=== PATIENT | male | born 1945 | race Caucasian/White ===

== ENCOUNTER 2023-03-13 01:09 | Inpatient (IN) | payer OTHER, MEDICARE ==
[~2023-03-13] VITALS: Ht 185.4 cm; Wt 99.8 kg
[2023-03-13 01:13] VITALS: BP_SYST 148; PULSE 75; RESP 20; TEMP 97.5; O2SAT 92
[2023-03-13] MEDS ORDERED: NITROGLYCERIN 1 INCH (GM) OINT. TP ONE (01:17)
[2023-03-13] MEDS ORDERED: MORPHINE 4 MG INJ. 4 MG/ML VIAL IVP ONE (01:17)
[2023-03-13] MEDS ORDERED: SPIR25TA PO (02:13)
[2023-03-13] MEDS ORDERED: NEU300 PO (02:13)
[2023-03-13] MEDS ORDERED: LAM25 PO (02:13)
[2023-03-13] MEDS ORDERED: ESCI10TA PO (02:13)
[2023-03-13] MEDS ORDERED: MULT-1089 PO (02:13)
[2023-03-13] MEDS ORDERED: BUSP10TA3 PO (02:13)
[2023-03-13] MEDS ORDERED: ASCO500T20 PO (02:13)
[2023-03-13] MEDS ORDERED: METF-1069 PO (02:13)
[2023-03-13] MEDS ORDERED: LIP80 PO (02:13)
[2023-03-13] MEDS ORDERED: INSU100V38 SQ (02:13)
[2023-03-13] MEDS ORDERED: CHOL3000 PO (02:13)
[2023-03-13] MEDS ORDERED: MONT-40 PO (02:13)
[2023-03-13] MEDS ORDERED: CLOP75TA32 PO (02:13)
[2023-03-13] MEDS ORDERED: COR25 PO (02:13)
[2023-03-13] MEDS ORDERED: TAMS0.4C96 PO (02:13)
[2023-03-13] MEDS ORDERED: DAPA1TAB4 PO (02:13)
[2023-03-13] MEDS ORDERED: FERR159T2 PO (02:13)
[2023-03-13 02:21] LABS: BASOPHILS % (AUTO) 0.4 % (0.0-2.0); EOSINOPHILS # (AUTO) 0.2 K/uL (0.0-0.4); HEMATOCRIT 40.6 % (36-54); HEMOGLOBIN 13.7 g/dL (14.0-18.0); LYMPHOCYTES # (AUTO) 1.8 K/uL (1.0-5.5); LYMPHOCYTES % (AUTO) 23.4 % (20.5-51.5); MEAN CORPUSCULAR HEMOGLOBIN 34 pg (27-31); MEAN CORPUSCULAR HGB CONC 34 % (32-36); MEAN CORPUSCULAR VOLUME 100 fL (79.0-98.0); MONOCYTES % (AUTO) 12.7 % (1.7-9.3); NEUTROPHILS # (AUTO) 4.6 K/uL (1.8-7.7); NEUTROPHILS % (AUTO) 61.5 % (40.0-70.0); PLATELET COUNT (AUTO) 219 K/uL (130-430); RED BLOOD CELL COUNT(AUTO) 4.06 MIL/uL (4.2-6.2); RED CELL DISTRIBUTION WIDTH 13.8 % (9.0-15.0); WHITE BLOOD COUNT (AUTO) 7.5 K/uL (4.8-10.8)
[2023-03-13 03:26] LABS: ANION GAP 10 (5-15); CALCIUM 9.3 mg/dL (8.4-11.0); CARBON DIOXIDE 25 mmol/L (23-29); CHLORIDE 100 mmol/L (98-107); CREATININE 1.55 mg/dL (0.55-1.30); GLUCOSE 243 mg/dL (74-106); POTASSIUM 4.1 mmol/L (3.5-5.1); SODIUM SERUM 135 mmol/L (136-145); UREA NITROGEN, BLOOD 20 mg/dL (8-21)
[2023-03-13 03:29] LABS: INR 1.1 (0.80-1.20)
[2023-03-13 03:34] LABS: ALANINE AMINOTRANSFERASE 43 U/L (12-78); ALBUMIN 4.1 g/dL (3.4-4.8); ASPARTATE AMINOTRANSFERASE 21 U/L (10-37); TOTAL BILIRUBIN 0.4 mg/dL (0.0-1.0)
[2023-03-13] MEDS ORDERED: ENOXAPARIN SODIUM 100 MG/ML SYRINGE SUBCUT ONE (04:15)
[2023-03-13] MEDS ORDERED: MORPHINE 2 MG/ML INJ. SYRINGE IVP PRN ×2 (04:30→10:15)
[2023-03-13 09:49] VITALS: BP_SYST 125; PULSE 50; RESP 18; TEMP 97.1; O2SAT 98
[2023-03-13] MEDS ORDERED: NALOXONE HCL 0.4 MG/ML AMP (NARCAN) IVP PRN (10:15)
[2023-03-13 12:00] VITALS: BP_SYST 122; PULSE 52; RESP 18; TEMP 96.7; O2SAT 98
[2023-03-13 16:00] VITALS: BP_SYST 143; PULSE 75; RESP 16; TEMP 97.8; O2SAT 98
[2023-03-13] MEDS ORDERED: ACETAMINOPHEN 325 MG TABLET ONE (17:41)
[2023-03-13] MEDS ORDERED: ACETAMINOPHEN 325 MG TABLET PO PRN (17:45)
[2023-03-13] MEDS ORDERED: MONTELUKAST 10 MG TABLET PO SCH (18:00)
[2023-03-13 19:00] VITALS: O2SAT 95
[2023-03-13 20:00] VITALS: BP_SYST 136; PULSE 59; RESP 12; TEMP 98.6; O2SAT 95
[2023-03-13] MEDS ORDERED: INSULIN GLARGINE 100 UNITS/ML, 10 ML VIAL SUBCUT SCH (21:00)
[2023-03-13] MEDS: busPIRone HCL 5 MG TABLET PO SCH (21:22)
[2023-03-13] MEDS: LamoTRIgine 25 MG TABLET PO SCH (21:23)
[2023-03-13] MEDS: CARVEDILOL 25 MG TABLET (COREG) PO SCH (21:23)
[2023-03-14 06:19] LABS: BASOPHILS # (AUTO) 0.2 K/uL (0.0-0.2); EOSINOPHILS # (AUTO) 0.1 K/uL (0.0-0.4); EOSINOPHILS % (AUTO) 1.7 % (0.0-4.0); HEMATOCRIT 40.1 % (36-54); HEMOGLOBIN 13.3 g/dL (14.0-18.0); LYMPHOCYTES # (AUTO) 2.1 K/uL (1.0-5.5); LYMPHOCYTES % (AUTO) 25.3 % (20.5-51.5); MEAN CORPUSCULAR HEMOGLOBIN 33 pg (27-31); MEAN CORPUSCULAR HGB CONC 33 % (32-36); MEAN CORPUSCULAR VOLUME 100 fL (79.0-98.0); MONOCYTES # (AUTO) 0.9 K/uL (0.0-1.0); MONOCYTES % (AUTO) 11.1 % (1.7-9.3); NEUTROPHILS # (AUTO) 4.9 K/uL (1.8-7.7); NEUTROPHILS % (AUTO) 59.9 % (40.0-70.0); PLATELET COUNT (AUTO) 209 K/uL (130-430); WHITE BLOOD COUNT (AUTO) 8.3 K/uL (4.8-10.8)
[2023-03-14 06:30] LABS: ANION GAP 10 (5-15); CALCIUM 9.6 mg/dL (8.4-11.0); CARBON DIOXIDE 26 mmol/L (23-29); CHLORIDE 101 mmol/L (98-107); CREATININE 1.34 mg/dL (0.55-1.30); GLUCOSE 90 mg/dL (74-106); POTASSIUM 4.3 mmol/L (3.5-5.1); SODIUM SERUM 137 mmol/L (136-145); UREA NITROGEN, BLOOD 20 mg/dL (8-21)
[2023-03-14 06:42] LABS: ALANINE AMINOTRANSFERASE 41 U/L (12-78); ALBUMIN 3.8 g/dL (3.4-4.8); ASPARTATE AMINOTRANSFERASE 36 U/L (10-37); CHOLESTEROL 119 mg/dL (<200); HDL CHOLESTEROL 50 mg/dL (>45); TOTAL BILIRUBIN 0.6 mg/dL (0.0-1.0); TOTAL PROTEIN, SERUM 6.6 g/dL (6.4-8.3); TRIGLYCERIDES 129 mg/dL (30-150)
[2023-03-14 07:51] VITALS: BP_SYST 140; PULSE 50; RESP 18; TEMP 97.1; O2SAT 97
[2023-03-14] MEDS: busPIRone HCL 5 MG TABLET PO SCH (08:45)
[2023-03-14] MEDS: LamoTRIgine 25 MG TABLET PO SCH (08:46)
[2023-03-14] MEDS: CARVEDILOL 25 MG TABLET (COREG) PO SCH (08:47)
[2023-03-14] MEDS ORDERED: CITALOPRAM HYDROBROMIDE 20 MG TABLET PO SCH (09:00)
[2023-03-14] MEDS ORDERED: CLOPIDOGREL BISULFATE 75 MG TABLET PO SCH (09:00)
[2023-03-14] MEDS ORDERED: ASCORBIC ACID 500 MG TABLET PO SCH (09:00)
[2023-03-14] MEDS ORDERED: ATORVASTATIN 20 MG TABLET PO SCH (09:00)
[2023-03-14] MEDS ORDERED: TAMSULOSIN HCL 0.4 MG CAP PO SCH (09:00)
[2023-03-14] MEDS ORDERED: SPIRONOLACTONE 25 MG TABLET (ALDACTONE) PO SCH (09:00)
[2023-03-14] MEDS ORDERED: GABAPENTIN 300 MG CAPSULE PO SCH (09:00)
[2023-03-14 09:47] VITALS: BP_SYST 125; PULSE 52; RESP 17; TEMP 98; O2SAT 97
[2023-03-14 09:52] VITALS: BP_SYST 125; PULSE 52; RESP 17; TEMP 98; O2SAT 97
[2023-03-14 09:59] VITALS: O2SAT 97
== END 2023-03-14 12:00 | disposition home or self-care (01) | DRG 282 ==
LOC: SED 01:09 → STU 04:42
PROVIDERS: ADMIT Internal Medicine; ATTEND Internal Medicine
DX: I21.4 Non-ST elevation (NSTEMI) myocardial infarction (principal); E78.5 Hyperlipidemia, unspecified; I25.10 Atherosclerotic heart disease of native coronary artery without angina pectoris; I25.5 Ischemic cardiomyopathy; E11.42 Type 2 diabetes mellitus with diabetic polyneuropathy; N40.0 Benign prostatic hyperplasia without lower urinary tract symptoms; I50.9 Heart failure, unspecified; N18.2 Chronic kidney disease, stage 2 (mild); E11.22 Type 2 diabetes mellitus with diabetic chronic kidney disease; I25.2 Old myocardial infarction; Z79.4 Long term (current) use of insulin; Z87.891 Personal history of nicotine dependence; Z95.810 Presence of automatic (implantable) cardiac defibrillator; R06.03 Acute respiratory distress
CPT/HCPCS: 36415; 71045; 80048; 80053; 80061; 82962; 83880; 84443; 84484; 85025; 85379; 85610-TC; 85730-TC; 93005; 93306; 96372; 96374; 99285; G0378; J1650; J1815; J2270

== ENCOUNTER 2023-07-21 00:09 | Inpatient (IN) | payer OTHER, MEDICARE ==
[~2023-07-21] VITALS: Ht 182.9 cm; Wt 100.2 kg
[~2023-07-21 00:09] MED LIST: ASCO500T20 PO; BUSP10TA3 PO; CHOL3000 PO; CLOP75TA32 PO; COR25 PO; DAPA1TAB4 PO; ESCI10TA PO; FERR159T2 PO; INSU100V38 SQ; LAM25 PO; LIP80 PO; METF-1069 PO; MONT-40 PO; MULT-1089 PO; NEU300 PO; SPIR25TA PO; TAMS0.4C96 PO
[2023-07-21 00:15] VITALS: BP_SYST 151; PULSE 74; RESP 19; TEMP 98.1; O2SAT 95
[2023-07-21 01:10] LABS: BASOPHILS % (AUTO) 0.2 % (0.0-2.0); EOSINOPHILS % (AUTO) 0.4 % (0.0-4.0); HEMATOCRIT 40.6 % (36-54); HEMOGLOBIN 13.9 g/dL (14.0-18.0); LYMPHOCYTES % (AUTO) 11.3 % (20.5-51.5); MEAN CORPUSCULAR HEMOGLOBIN 35 pg (27-31); MEAN CORPUSCULAR HGB CONC 34 % (32-36); MEAN CORPUSCULAR VOLUME 102 fL (79.0-98.0); MONOCYTES # (AUTO) 0.8 K/uL (0.0-1.0); MONOCYTES % (AUTO) 8.8 % (1.7-9.3); NEUTROPHILS # (AUTO) 6.8 K/uL (1.8-7.7); NEUTROPHILS % (AUTO) 79.3 % (40.0-70.0); PLATELET COUNT (AUTO) 217 K/uL (130-430); RED BLOOD CELL COUNT(AUTO) 3.98 MIL/uL (4.2-6.2); RED CELL DISTRIBUTION WIDTH 13.4 % (9.0-15.0); WHITE BLOOD COUNT (AUTO) 8.6 K/uL (4.8-10.8)
[2023-07-21] MEDS: MORPHINE 4 MG INJ. 4 MG/ML VIAL IVP ONE (01:18)
[2023-07-21] MEDS: ASPIRIN 81 MG TAB.CHEW PO ONE (01:23)
[2023-07-21 02:00] LABS: ALANINE AMINOTRANSFERASE 181 U/L (12-78); ALBUMIN 3.7 g/dL (3.4-4.8); ANION GAP 9 (5-15); ASPARTATE AMINOTRANSFERASE 164 U/L (10-37); CALCIUM 8.8 mg/dL (8.4-11.0); CARBON DIOXIDE 24 mmol/L (23-29); CHLORIDE 99 mmol/L (98-107); CREATININE 1.76 mg/dL (0.55-1.30); POTASSIUM 4.7 mmol/L (3.5-5.1); SODIUM SERUM 132 mmol/L (136-145); TOTAL BILIRUBIN 0.5 mg/dL (0.0-1.0); TOTAL PROTEIN, SERUM 6.5 g/dL (6.4-8.3); UREA NITROGEN, BLOOD 27 mg/dL (8-21)
[2023-07-21 03:11] LABS: GLUCOSE 479 mg/dL (74-106)
[2023-07-21] MEDS: INSULIN REGULAR, HUMAN 10 UNITS/0.1 ML, 3 ML VIAL SUBCUT ONE (03:49)
[2023-07-21] MEDS ORDERED: INSULIN REGULAR, HUMAN 100 UNITS/ML, 3 ML VIAL (humuLIN R) SUBCUT PRN (05:15)
[2023-07-21] MEDS: NITROGLYCERIN 0.4 MG TAB.SUBL SL ONE (05:31)
[2023-07-21] MEDS ORDERED: DAPA1TAB4 PO (06:08)
[2023-07-21] MEDS ORDERED: AZEL205.2 NS (06:08)
[2023-07-21] MEDS ORDERED: BUSP10TA3 PO (06:08)
[2023-07-21] MEDS ORDERED: LAM25 PO (06:08)
[2023-07-21] MEDS ORDERED: ICOS1CAP PO (06:08)
[2023-07-21] MEDS ORDERED: INSULIN LISPRO SLIDING SCALE 100 UNITS/ML, 3 ML VIAL (humaLOG) SUBCUT PRN (08:30)
[2023-07-21] MEDS ORDERED: DEXTROSE 50% JECT 50 ML DISP.SYRIN IVP PRN (08:30)
[2023-07-21] MEDS ORDERED: CLOPIDOGREL BISULFATE 75 MG TABLET PO SCH (09:00)
[2023-07-21] MEDS ORDERED: HEPARIN SODIUM, PORCINE 10,000 UNITS/ 10 ML VIAL SUBCUT ONE (09:00)
[2023-07-21] MEDS ORDERED: GABAPENTIN 300 MG CAPSULE PO SCH (09:00)
[2023-07-21] MEDS ORDERED: busPIRone HCL 5 MG TABLET PO SCH (09:00)
[2023-07-21] MEDS: NITROGLYCERIN 0.4 MG TAB.SUBL SL PRN (09:21)
[2023-07-21] MEDS ORDERED: INSULIN GLARGINE 100 UNITS/ML, 10 ML VIAL ONE (09:54)
[2023-07-21] MEDS: SPIRONOLACTONE 25 MG TABLET (ALDACTONE) PO ONE (09:59)
[2023-07-21] MEDS: CARVEDILOL 25 MG TABLET (COREG) PO ONE (10:00)
[2023-07-21] MEDS: INSULIN LISPRO SLIDING SCALE 100 UNITS/ML, 3 ML VIAL (humaLOG) SUBCUT PRN (10:04)
[2023-07-21] MEDS: busPIRone HCL 5 MG TABLET PO ONE (10:16)
[2023-07-21] MEDS: TAMSULOSIN HCL 0.4 MG CAP PO SCH (10:16)
[2023-07-21] MEDS: CITALOPRAM HYDROBROMIDE 20 MG TABLET PO ONE (10:16)
[2023-07-21] MEDS: CLOPIDOGREL BISULFATE 75 MG TABLET PO ONE (10:17)
[2023-07-21] MEDS: LamoTRIgine 25 MG TABLET PO ONE (11:14)
[2023-07-21] MEDS: ASCORBIC ACID 500 MG TABLET PO ONE (11:14)
[2023-07-21] MEDS: ATORVASTATIN 20 MG TABLET PO ONE (11:14)
[2023-07-21] MEDS ORDERED: GABA600T PO (13:02)
[2023-07-21] MEDS ORDERED: FERR-31 PO (13:08)
[2023-07-21 14:32] LABS: INR 1.2 (0.80-1.20); PROTHROMBIN TIME 12.1 SECS (9.5-12.5)
[2023-07-21] MEDS: HEPARIN SODIUM,PORCINE 5,000 UNITS/ML VIAL SUBCUT SCH (14:58)
[2023-07-21] MEDS ORDERED: HYDROcodone/ACETAMIN 5-325 MG TAB (NORCO/ VICODIN) PO PRN (16:45)
[2023-07-21] MEDS ORDERED: ONDANSETRON HCL 4 MG/2 ML VIAL IVP PRN (16:45)
[2023-07-21] MEDS ORDERED: ZOLPIDEM TARTRATE 5 MG TABLET PO PRN (16:45)
[2023-07-21] MEDS: MONTELUKAST 10 MG TABLET PO SCH (19:24)
[2023-07-21 21:00] VITALS: BP_SYST 141; PULSE 88; RESP 18; TEMP 98.4; O2SAT 91
[2023-07-21] MEDS ORDERED: INSULIN DEGLUDEC 16 UNIT SQ SCH (21:00)
[2023-07-21] MEDS ORDERED: CARVEDILOL 25 MG TABLET (COREG) PO SCH (21:00)
[2023-07-21 21:27] VITALS: BP_SYST 141; PULSE 88; RESP 18; TEMP 98.4
[2023-07-21] MEDS: INSULIN GLARGINE 100 UNITS/ML, 10 ML VIAL SUBCUT SCH (22:16)
[2023-07-21] MEDS: CARVEDILOL 12.5 MG TABLET (COREG) PO SCH (22:18)
[2023-07-21] MEDS: GABAPENTIN 300 MG CAPSULE PO SCH (22:18)
[2023-07-21] MEDS: busPIRone HCL 5 MG TABLET PO SCH (22:19)
[2023-07-21] MEDS: LamoTRIgine 25 MG TABLET PO SCH (22:24)
[2023-07-22 08:00] VITALS: BP_SYST 131; PULSE 57; RESP 20; TEMP 98.3; O2SAT 98
[2023-07-22 08:32] LABS: BASOPHILS % (AUTO) 0.2 % (0.0-2.0); EOSINOPHILS # (AUTO) 0.1 K/uL (0.0-0.4); EOSINOPHILS % (AUTO) 0.6 % (0.0-4.0); HEMOGLOBIN 14.6 g/dL (14.0-18.0); LYMPHOCYTES # (AUTO) 1.2 K/uL (1.0-5.5); LYMPHOCYTES % (AUTO) 13.1 % (20.5-51.5); MEAN CORPUSCULAR HEMOGLOBIN 35 pg (27-31); MEAN CORPUSCULAR HGB CONC 35 % (32-36); MEAN CORPUSCULAR VOLUME 102 fL (79.0-98.0); MONOCYTES # (AUTO) 0.7 K/uL (0.0-1.0); MONOCYTES % (AUTO) 7.7 % (1.7-9.3); NEUTROPHILS # (AUTO) 7.1 K/uL (1.8-7.7); NEUTROPHILS % (AUTO) 78.4 % (40.0-70.0); PLATELET COUNT (AUTO) 215 K/uL (130-430); RED BLOOD CELL COUNT(AUTO) 4.14 MIL/uL (4.2-6.2); RED CELL DISTRIBUTION WIDTH 13.2 % (9.0-15.0); WHITE BLOOD COUNT (AUTO) 9.1 K/uL (4.8-10.8)
[2023-07-22 08:49] LABS: ALANINE AMINOTRANSFERASE 133 U/L (12-78); ALBUMIN 3.7 g/dL (3.4-4.8); ANION GAP 6 (5-15); CARBON DIOXIDE 30 mmol/L (23-29); CHLORIDE 104 mmol/L (98-107); CHOLESTEROL 120 mg/dL (<200); CREATININE 1.48 mg/dL (0.55-1.30); GLUCOSE 278 mg/dL (74-106); HDL CHOLESTEROL 44 mg/dL (>45); POTASSIUM 5.1 mmol/L (3.5-5.1); SODIUM SERUM 140 mmol/L (136-145); THYROID STIMULATING HORMONE 3.02 uIu/mL (0.34-4.82); TOTAL BILIRUBIN 0.8 mg/dL (0.0-1.0); TOTAL PROTEIN, SERUM 6.6 g/dL (6.4-8.3); TRIGLYCERIDES 140 mg/dL (30-150); UREA NITROGEN, BLOOD 25 mg/dL (8-21)
[2023-07-22 09:24] LABS: ASPARTATE AMINOTRANSFERASE 36 U/L (10-37)
[2023-07-22] MEDS: ASCORBIC ACID 500 MG TABLET PO SCH (09:25)
[2023-07-22] MEDS: CITALOPRAM HYDROBROMIDE 20 MG TABLET PO SCH (09:25)
[2023-07-22] MEDS: ATORVASTATIN 20 MG TABLET PO SCH (09:26)
[2023-07-22] MEDS: CLOPIDOGREL BISULFATE 75 MG TABLET PO SCH (09:27)
[2023-07-22] MEDS: SPIRONOLACTONE 25 MG TABLET (ALDACTONE) PO SCH (09:27)
[2023-07-22 10:27] VITALS: BP_SYST 131; PULSE 57; RESP 20; TEMP 98; O2SAT 97
== END 2023-07-22 11:46 | disposition home or self-care (01) | DRG 281 ==
LOC: SED 00:09 → STU 05:06
PROVIDERS: ADMIT General Practice; ATTEND General Practice
DX: I21.4 Non-ST elevation (NSTEMI) myocardial infarction (principal); I13.0 Hypertensive heart and chronic kidney disease with heart failure and stage 1 through stage 4 chronic kidney disease, or unspecified chronic kidney disease; I50.22 Chronic systolic (congestive) heart failure; N17.9 Acute kidney failure, unspecified; N18.30 Chronic kidney disease, stage 3 unspecified; E11.22 Type 2 diabetes mellitus with diabetic chronic kidney disease; I25.5 Ischemic cardiomyopathy; I25.10 Atherosclerotic heart disease of native coronary artery without angina pectoris; E11.40 Type 2 diabetes mellitus with diabetic neuropathy, unspecified; I25.2 Old myocardial infarction; Z95.1 Presence of aortocoronary bypass graft; Z79.84 Long term (current) use of oral hypoglycemic drugs; Z79.899 Other long term (current) drug therapy; Z95.818 Presence of other cardiac implants and grafts
CPT/HCPCS: 36415; 71046; 80053; 80061; 82948; 83037; 83735; 83880; 84443; 84484; 85025; 85610; 85730; 93005; 99291; G0378; J1644; J1815; J2270